=== PATIENT | female | born 1970 | race Caucasian/White ===

== ENCOUNTER 2017-02-25 08:25 | Emergency (ER) | payer OTHER, SELFPAY ==
[2017-02-25 09:14] LABS: #Basophils 0.1 thou/uL (0.0-0.2); #Eosinphils 0.4 thou/uL (0.0-0.7); #Lymphocytes 1.6 thou/uL (1.20-3.40); #Monocytes 0.4 thou/uL (0.11-0.59); #Neutrophils 3.6 thou/uL (1.40-6.50); %Basophils 1.1 % (0.0-1.0); %Eosinophils 6.3 % (0.0-10.0); %Lymphocytes 26.1 % (21.0-51.0); %Monocytes 6.6 % (0.0-10.0); Hematocrit 42.5 % (36.0-47.0); Mean Platelet Volume 7.5 fL (7.4-10.4); Red Blood Cell (RBC) Count 4.85 mill/uL (4.20-5.40)
[2017-02-25] MEDS ORDERED: methylPREDNISolone Sod Succ/PF 125 MG/2 ML VIAL ONE (09:15)
[2017-02-25 09:38] LABS: ALT (SGPT) 16 U/L (8-55); AST (SGOT) 19 U/L (5-34); Alkaline Phosphatase 77 U/L (40-150); Anion Gap 12 mmol/L (10-20); BUN (Urea Nitrogen) 9 mg/dL (7.0-18.7); Bilirubin, Total 0.3 mg/dL (0.2-1.2); CK (CPK) 121 U/L (29-168); Calc. Creatinine Clearance 0 mL/min (70-130); Calcium 9.4 mg/dL (7.8-10.44); Carbon Dioxide 25 mmol/L (22-29); Chloride 107 mmol/L (98-107); Estimated GFR-MDRD 74; Globulin 2.5 g/dL (2.4-3.5); Lipase 35 U/L (8-78); Protein, Total 6.7 g/dL (6.0-8.3)
[2017-02-25 09:40] LABS: Troponin I Less than 0.010 ng/mL (< 0.028)
--- NOTE | 2017-02-25 10:20 | RAD ---
CHEST 1 VIEW: HISTORY: Dyspnea. FINDINGS: No comparison. Cardiac silhouette is magnified by projection. Pulmonary vasculature is unremarkable. Mediastinum i s midline. Lungs are hyperinflated. There is no confluent airspace consolidation or evidence of pne umothorax. monitoring engineer leads overlie the chest. IMPRESSION: Chronic obstructive pulmonary disease. POS: [facility]
[2017-02-25 11:45] LABS: Troponin I Less than 0.010 ng/mL (< 0.028)
--- NOTE | 2017-04-02 12:44 | EKG ---
Test Reason : SOB, CP Blood Pressure : / mmHG Vent. Rate : 074 BPM Atrial Rate : 074 BPM P-R Int : 126 ms QRS Dur : 096 ms QT Int : 404 ms P-R-T Axes : 073 055 063 degrees QTc Int : 448 ms Normal sinus rhythm Possible Left atrial enlargement Incomplete right bundle branch block Borderline ECG Confirmed by JANE DEL ROSARIO, BRYANNA ([id number]), website/blog editor BARB KUMAR ([id number]) on 04/02/2017 12:43:52 PM Referred By: Confirmed By:BRYANNA LARA MD
== END 2017-02-25 12:14 | disposition home or self-care (01) ==
LOC: ERS 08:25
DX: J44.1 Chronic obstructive pulmonary disease with (acute) exacerbation (principal); R07.89 Other chest pain
CPT/HCPCS: 36415; 71010; 80053; 82553; 83690; 84484; 85025; 93005; 94640; 96374; 99406; J2930; J7620

== ENCOUNTER 2019-05-19 10:14 | Outpatient (CLI) | payer BC, OTHER ==
--- NOTE | 2019-05-19 10:34 | RAD ---
Chest 2 views HISTORY: Dyspnea. COMPARISON: 02/25/2017. FINDINGS: Cardiac silhouette and pulmonary vasculature are unremarkable. Mediastinum is midline. Lung s remain prominently hyperinflated with flattening of each hemidiaphragm. No confluent airspace consolidation, pneumothorax, or pleural fluid are apparent. IMPRESSION: Prominent pulmonary hyperinflation, stable.
== END 2019-05-19 10:15 | disposition home or self-care (01) ==
LOC: RAD 10:14
PROVIDERS: ATTEND Internal Medicine Critical Care Medicine
DX: R06.00 Dyspnea, unspecified (principal); J98.4 Other disorders of lung
CPT/HCPCS: 71046

== ENCOUNTER 2022-02-16 04:32 | Observation (INO) | payer BC, OTHER ==
[2022-02-16] MEDS ORDERED: Magnesium 2 GM/50 ML BAG (IN WATER) ONE (04:45)
[2022-02-16 05:13] LABS: Actual Bicarbonate (HCO3v) 24 mEq/L (22-28); Base Excess 2.8 mEq/L (-2.0 to +3.0); Calcium, Ionized (venous) 0.92 mmol/L (1.16-1.32); Chloride (VBG) 104 mmol/L (98-106); Hemoglobin (Hb) 14.2 g/dL (11.7-16.0); Potassium (VBG) 3.81 mmol/L (3.70-5.30); Sodium 137.5 mmol/L (133-146); pH (venous) 7.57 (7.32-7.43)
[2022-02-16] MEDS ORDERED: Ketorolac Tromethamine 30 MG/ML VIAL ONE (05:20)
[2022-02-16] MEDS ORDERED: diphenhydrAMINE 50 MG/ML VIAL ONE (05:20)
[2022-02-16] MEDS ORDERED: Metoclopramide HCl 10 MG/2 ML VIAL ONE (05:20)
[2022-02-16 05:25] LABS: #Basophils 0.1 thou/uL (0.0-0.2); #Eosinphils 0.4 thou/uL (0.0-0.7); #Lymphocytes 1.3 thou/uL (1.20-3.40); #Monocytes 0.6 thou/uL (0.11-0.59); %Basophils 0.4 % (0.0-1.0); %Monocytes 4.5 % (0.0-10.0); %Neutrophils 83.2 % (42.0-75.0); Hemoglobin 13.5 g/dL (12.0-16.0); Mean Corpuscular HGB CONC 32.8 g/dL (32.0-36.0); Mean Corpuscular Hemoglobin 29.3 pg (27.0-31.0); Mean Corpuscular Volume 89.2 fl (78.0-98.0); Mean Platelet Volume 8.1 fL (7.4-10.4); Platelet Count 294 10x3/uL (130-400); RBC Distribution Width 11.6 % (11.5-14.5); Red Blood Cell (RBC) Count 4.61 mill/uL (4.20-5.40); White Blood Cell (WBC) Count 14.4 10x3/uL (4.8-10.8)
[2022-02-16] MEDS ORDERED: Ondansetron PF 4 MG/2 ML Vial ONE (05:33)
[2022-02-16 05:42] LABS: ALT (SGPT) 17 U/L (8-55); AST (SGOT) 21 U/L (5-34); Albumin 4.4 g/dL (3.5-5.0); Alkaline Phosphatase 82 U/L (40-110); Anion Gap 13 mmol/L (10-20); BUN (Urea Nitrogen) 10 mg/dL (9.8-20.1); Bilirubin, Total 0.5 mg/dL (0.2-1.2); Calc. Creatinine Clearance 0 mL/min (70-130); Calcium 9.2 mg/dL (7.8-10.44); Carbon Dioxide 30 mmol/L (22-29); Chloride 103 mmol/L (98-107); Estimated GFR 100; Globulin 2.4 g/dL (2.4-3.5); Glucose 120 mg/dL (70-105); Potassium 3.8 mmol/L (3.5-5.1); Protein, Total 6.8 g/dL (6.0-8.3); Sodium 142 mmol/L (136-145)
[2022-02-16] MEDS ORDERED: Acetaminophen 325 MG TAB PO PRN ×2 (10:00→11:03)
[2022-02-16] MEDS ORDERED: Ondansetron ODT 4 MG TAB PO PRN (11:03)
[2022-02-16] MEDS ORDERED: Ondansetron PF 4 MG/2 ML Vial IVP PRN ×2 (11:03→12:00)
[2022-02-16 11:06] VITALS: BMI 21.9
[2022-02-16] MEDS ORDERED: Ondansetron ODT 4 MG TAB SL PRN (12:00)
[2022-02-16] MEDS ORDERED: Metoclopramide HCl 10 MG/2 ML VIAL IVP PRN (12:11)
[2022-02-16] MEDS ORDERED: diphenhydrAMINE 50 MG/ML VIAL IVP PRN (12:12)
[2022-02-16] MEDS ORDERED: Sodium Chloride 0.9% 1,000 ML IV SCH (12:15)
[2022-02-16] MEDS: methylPREDNISolone Sod Succ 40 MG VIAL IVP SCH ×3 (12:24→23:57)
[2022-02-16] MEDS ORDERED: Nicotine 21 MG PATCH TD PRN (14:33)
[2022-02-16] MEDS ORDERED: Albuterol Sulfate 1.25 MG/3 ML NEB NEB PRN (16:47)
[2022-02-16] MEDS ORDERED: Atorvastatin Calcium 40 MG TAB PO SCH (21:00)
[2022-02-17] MEDS: methylPREDNISolone Sod Succ 40 MG VIAL IVP SCH (06:27)
[2022-02-17 07:23] LABS: #Lymphocytes 1.1 thou/uL (1.20-3.40); #Monocytes 0.2 thou/uL (0.11-0.59); #Neutrophils 10.5 thou/uL (1.40-6.50); %Basophils 0.3 % (0.0-1.0); %Eosinophils 0.1 % (0.0-10.0); %Lymphocytes 9.4 % (21.0-51.0); %Monocytes 1.9 % (0.0-10.0); %Neutrophils 88.3 % (42.0-75.0); Hemoglobin 12.6 g/dL (12.0-16.0); Mean Corpuscular HGB CONC 32.2 g/dL (32.0-36.0); Mean Corpuscular Hemoglobin 28.4 pg (27.0-31.0); Mean Corpuscular Volume 88.1 fl (78.0-98.0); Mean Platelet Volume 8.7 fL (7.4-10.4); Platelet Count 255 10x3/uL (130-400); RBC Distribution Width 11.8 % (11.5-14.5); Red Blood Cell (RBC) Count 4.44 mill/uL (4.20-5.40); White Blood Cell (WBC) Count 11.9 10x3/uL (4.8-10.8)
[2022-02-17 07:48] LABS: Anion Gap 12 mmol/L (10-20); BUN (Urea Nitrogen) 10 mg/dL (9.8-20.1); Calc. Creatinine Clearance 90 mL/min (70-130); Calcium 9.4 mg/dL (7.8-10.44); Carbon Dioxide 27 mmol/L (22-29); Chloride 108 mmol/L (98-107); Estimated GFR 98; Glucose 149 mg/dL (70-105); Potassium 3.2 mmol/L (3.5-5.1); Sodium 144 mmol/L (136-145)
[2022-02-17 08:25] VITALS: BP 124/78; TEMP 98.3
[2022-02-17] MEDS ORDERED: Clopidogrel Bisulfate 75 MG TAB PO SCH (09:00)
[2022-02-17] MEDS ORDERED: Enoxaparin Sodium 40 MG/0.4 ML SYRINGE SC SCH (09:00)
[2022-02-17] MEDS ORDERED: Nicotine 21 MG PATCH TD SCH (09:00)
[2022-02-17] MEDS ORDERED: Hydroxychloroquine Sulfate 200 MG TAB PO SCH (09:00)
== END 2022-02-17 11:50 | disposition home or self-care (01) ==
LOC: ERS 04:32 → T4-B 07:19
PROVIDERS: ADMIT Hospitalist; ATTEND Hospitalist
DX: J43.9 Emphysema, unspecified (principal); J96.20 Acute and chronic respiratory failure, unspecified whether with hypoxia or hypercapnia; F17.210 Nicotine dependence, cigarettes, uncomplicated; E87.6 Hypokalemia; G43.109 Migraine with aura, not intractable, without status migrainosus; M32.9 Systemic lupus erythematosus, unspecified; I25.10 Atherosclerotic heart disease of native coronary artery without angina pectoris; E78.5 Hyperlipidemia, unspecified; I25.2 Old myocardial infarction; Z66 Do not resuscitate; Z86.73 Personal history of transient ischemic attack (TIA), and cerebral infarction without residual deficits; Z79.02 Long term (current) use of antithrombotics/antiplatelets; Z79.899 Other long term (current) drug therapy; Z88.0 Allergy status to penicillin; Z88.8 Allergy status to other drugs, medicaments and biological substances; Z20.822 Contact with and (suspected) exposure to COVID-19
CPT/HCPCS: 36415; 71045; 80048; 80053; 82805; 83880; 84484; 85025; 85379; 93005; 94640; 94660; 96374; 96375; 96376; G0378; J1200; J1885; J2405; J2765; J2920; J3475; J7050; J7620; U0003; U0005

== ENCOUNTER 2022-07-14 03:43 | Inpatient (IN) | payer BC, OTHER ==
[2022-07-14] MEDS ORDERED: LORazepam 2 MG/ML SYR.(CARPUJECT) ONE (04:05)
[2022-07-14] MEDS ORDERED: Dexamethasone 10 MG/ML VIAL ONE (04:05)
[2022-07-14] MEDS ORDERED: Magnesium 2 GM/50 ML BAG (IN WATER) ONE (04:05)
[2022-07-14] MEDS ORDERED: Ipratropium/Albuterol 3 ML NEB ONE (04:06)
[2022-07-14 04:30] LABS: #Eosinphils 0.4 thou/uL (0.0-0.7); #Lymphocytes 2.1 thou/uL (1.20-3.40); #Monocytes 0.6 thou/uL (0.11-0.59); #Neutrophils 5.2 thou/uL (1.40-6.50); %Basophils 0.4 % (0.0-1.0); %Eosinophils 4.6 % (0.0-10.0); %Lymphocytes 25.5 % (21.0-51.0); %Monocytes 7.3 % (0.0-10.0); %Neutrophils 62.2 % (42.0-75.0); Hemoglobin 12.2 g/dL (12.0-16.0); Mean Corpuscular HGB CONC 34.4 g/dL (32.0-36.0); Mean Corpuscular Hemoglobin 29.7 pg (27.0-31.0); Mean Corpuscular Volume 86.2 fl (78.0-98.0); Mean Platelet Volume 7.9 fL (7.4-10.4); Platelet Count 221 10x3/uL (130-400); RBC Distribution Width 12.2 % (11.5-14.5); White Blood Cell (WBC) Count 8.4 10x3/uL (4.8-10.8)
[2022-07-14 04:56] LABS: ALT (SGPT) 21 U/L (8-55); AST (SGOT) 24 U/L (5-34); Albumin 3.9 g/dL (3.5-5.0); Alkaline Phosphatase 73 U/L (40-110); Anion Gap 11 mmol/L (10-20); BUN (Urea Nitrogen) 9 mg/dL (9.8-20.1); Bilirubin, Total 0.6 mg/dL (0.2-1.2); CK (CPK) 127 U/L (29-168); Calc. Creatinine Clearance 0 mL/min (70-130); Calcium 9.1 mg/dL (7.8-10.44); Carbon Dioxide 31 mmol/L (22-29); Chloride 107 mmol/L (98-107); Estimated GFR 87; Globulin 1.8 g/dL (2.4-3.5); Glucose 107 mg/dL (70-105); Lipase 35 U/L (8-78); Potassium 3.4 mmol/L (3.5-5.1); Protein, Total 5.7 g/dL (6.0-8.3); Sodium 146 mmol/L (136-145)
[2022-07-14] MEDS ORDERED: fentaNYL 50 mcg/mL 1 mL Vial ONE (06:16)
[2022-07-14] MEDS ORDERED: Ondansetron PF 4 MG/2 ML Vial ONE (06:20)
[2022-07-14] MEDS ORDERED: Morphine 4 MG/ML VIAL ONE (07:52)
[2022-07-14] MEDS ORDERED: Acetaminophen 325 MG TAB PO PRN (08:11)
[2022-07-14] MEDS ORDERED: Ondansetron PF 4 MG/2 ML Vial IVP PRN (08:11)
[2022-07-14] MEDS ORDERED: Senokot S 8.6-50 MG TAB PO PRN (08:11)
[2022-07-14] MEDS ORDERED: Calcium Carbonate 500 MG ChewTAB PO PRN (08:11)
[2022-07-14] MEDS ORDERED: ALPRAZolam 0.5 MG TAB PO PRN (08:13)
[2022-07-14] MEDS ORDERED: Ipratropium/Albuterol 3 ML NEB NEB PRN (08:15)
[2022-07-14] MEDS ORDERED: guaiFENesin/Codeine 200 mg/20 mg 10 ml Cup PO PRN (08:16)
[2022-07-14] MEDS ORDERED: Rimegepant Sulfate [Nurtec Odt] 75 MG Tab.Rapdis PO PRN (08:34)
[2022-07-14] MEDS ORDERED: Albuterol HFA (OR) 200 PUFF INH INH PRN (08:43)
[2022-07-14] MEDS ORDERED: Nicotine 21 MG PATCH TD SCH (09:00)
[2022-07-14] MEDS ORDERED: methylPREDNISolone Sod Succ/PF 125 MG/2 ML VIAL IVP SCH (09:00)
[2022-07-14] MEDS ORDERED: lamoTRIgine 100 MG TAB PO SCH ×2 (09:00→21:00)
[2022-07-14] MEDS ORDERED: Ipratropium Bromide 2.5 ml Neb NEB SCH ×2 (09:00→13:00)
[2022-07-14] MEDS ORDERED: Hydroxychloroquine Sulfate 200 MG TAB PO SCH ×2 (09:00→21:00)
[2022-07-14] MEDS ORDERED: Mometasone 100 MCG/PUFF (1 INHALER) INH SCH (09:00)
[2022-07-14 09:08] LABS: Troponin I Less than 0.010 ng/mL (< 0.028)
[2022-07-14] MEDS ORDERED: Potassium Chloride 20 MEQ TAB PO SCH (10:30)
[2022-07-14] MEDS ORDERED: Iopamidol-370 76% 500 ML MDV (1 ML CHARGE) ONE (11:44)
[2022-07-14 11:57] LABS: Troponin I Less than 0.010 ng/mL (< 0.028)
[2022-07-14] MEDS: Benzonatate 100 MG CAP PO SCH ×4 (12:02→21:18)
[2022-07-14] MEDS: HYDROcodone/Acetaminophen 5/325 mg Tablet PO PRN ×2 (12:55→18:15)
[2022-07-14] MEDS: Doxycycline 100 MG in Sodium Chloride 0.9% 100 ML IVPB SCH ×2 (12:58→21:14)
[2022-07-14] MEDS: Clopidogrel Bisulfate 75 MG TAB PO SCH (12:58)
[2022-07-14 14:12] VITALS: BMI 19.0
[2022-07-14] MEDS: Lactated Ringer's 1,000 ML IV SCH ×2 (14:23→23:42)
[2022-07-14] MEDS ORDERED: UBROGEPANT 100 MG PO PRN (14:28)
[2022-07-14] MEDS: Mometasone 100 MCG/PUFF (1 INHALER) INH SCH (18:57)
[2022-07-14] MEDS ORDERED: Atorvastatin Calcium 40 MG TAB PO SCH (21:00)
[2022-07-14] MEDS ORDERED: QULIPTA 60 MG PO SCH (21:00)
[2022-07-14] MEDS ORDERED: clonazePAM 1 MG TAB PO SCH (21:00)
[2022-07-14] MEDS: CEFPODOXIME PROXETIL 200 MG PO SCH (21:16)
[2022-07-15] MEDS ORDERED: Nicotine 21 MG PATCH TD SCH (02:00)
[2022-07-15 05:36] LABS: #Lymphocytes 1.3 thou/uL (1.20-3.40); #Monocytes 0.8 thou/uL (0.11-0.59); #Neutrophils 8.8 thou/uL (1.40-6.50); %Basophils 0.1 % (0.0-1.0); %Eosinophils 0.1 % (0.0-10.0); %Monocytes 7.5 % (0.0-10.0); %Neutrophils 80.3 % (42.0-75.0); Hemoglobin 10.8 g/dL (12.0-16.0); Mean Corpuscular HGB CONC 34.9 g/dL (32.0-36.0); Mean Corpuscular Hemoglobin 30.2 pg (27.0-31.0); Mean Corpuscular Volume 86.7 fl (78.0-98.0); Mean Platelet Volume 8.3 fL (7.4-10.4); Platelet Count 231 10x3/uL (130-400); RBC Distribution Width 12.3 % (11.5-14.5); Red Blood Cell (RBC) Count 3.57 mill/uL (4.20-5.40)
[2022-07-15 05:49] LABS: ALT (SGPT) 21 U/L (8-55); AST (SGOT) 19 U/L (5-34); Albumin 3.4 g/dL (3.5-5.0); Alkaline Phosphatase 61 U/L (40-110); Anion Gap 10 mmol/L (10-20); BUN (Urea Nitrogen) 7 mg/dL (9.8-20.1); Bilirubin, Total 0.3 mg/dL (0.2-1.2); Calc. Creatinine Clearance 80 mL/min (70-130); Calcium 8.9 mg/dL (7.8-10.44); Carbon Dioxide 30 mmol/L (22-29); Chloride 109 mmol/L (98-107); Estimated GFR 101; Globulin 1.8 g/dL (2.4-3.5); Glucose 114 mg/dL (70-105); Potassium 3.9 mmol/L (3.5-5.1); Protein, Total 5.2 g/dL (6.0-8.3); Sodium 145 mmol/L (136-145)
[2022-07-15] MEDS: HYDROcodone/Acetaminophen 5/325 mg Tablet PO PRN (06:42)
[2022-07-15] MEDS: Mometasone 100 MCG/PUFF (1 INHALER) INH SCH (07:36)
[2022-07-15] MEDS: Benzonatate 100 MG CAP PO SCH (08:47)
[2022-07-15] MEDS: Clopidogrel Bisulfate 75 MG TAB PO SCH (08:49)
[2022-07-15] MEDS: CEFPODOXIME PROXETIL 200 MG PO SCH (08:50)
[2022-07-15] MEDS ORDERED: TRELEGY PO SCH (09:00)
[2022-07-15] MEDS: Doxycycline 100 MG in Sodium Chloride 0.9% 100 ML IVPB SCH (10:12)
[2022-07-15 11:22] VITALS: BP 125/70
[2022-07-15 14:37] VITALS: TEMP 98.2
== END 2022-07-15 15:12 | disposition home or self-care (01) | DRG 189 ==
LOC: SUATTDRO 03:43 → ERS 03:43 → 2SW 08:20
PROVIDERS: ADMIT Internal Medicine; ATTEND Internal Medicine
DX: J96.21 Acute and chronic respiratory failure with hypoxia (principal); E87.0 Hyperosmolality and hypernatremia; J93.12 Secondary spontaneous pneumothorax; J43.9 Emphysema, unspecified; F39 Unspecified mood [affective] disorder; F17.210 Nicotine dependence, cigarettes, uncomplicated; M32.9 Systemic lupus erythematosus, unspecified; E78.5 Hyperlipidemia, unspecified; I25.10 Atherosclerotic heart disease of native coronary artery without angina pectoris; R91.8 Other nonspecific abnormal finding of lung field; E87.6 Hypokalemia; Z88.8 Allergy status to other drugs, medicaments and biological substances; I25.2 Old myocardial infarction; Z88.0 Allergy status to penicillin; Z86.73 Personal history of transient ischemic attack (TIA), and cerebral infarction without residual deficits; Z99.81 Dependence on supplemental oxygen; Z79.899 Other long term (current) drug therapy; Z79.02 Long term (current) use of antithrombotics/antiplatelets
CPT/HCPCS: 36415; 71045; 71275; 80053; 82550; 83690; 83880; 84484; 85025; 93005; 94640; J1100; J1650; J2060; J2270; J2405; J3010; J3475; J3490; J7120; J7611; J7620; Q9967